=== PATIENT | female | born 1970 | race Caucasian/White ===

== ENCOUNTER → 2024-09-12 | Outpatient (CLI) | payer BC, SELFPAY ==
[2024-09-12 11:51] LABS: Misc Send Out* See Sep Rpt
[2024-09-12 12:25] LABS: Basophils % (Auto) 1 % (0-2.5); Eosinophils # (Auto) 0.3 Thou/mm3 (0.0-0.5); Eosinophils % (Auto) 4 % (0-10); Hematocrit 41.6 % (36.0-46.0); Immature Granulocytes % (Auto) 0 % (0-0); Immature Granulocytes Auto 0.02 Thou/mm3 (0.00-0.00); Lymphocytes % (Auto) 33 % (10-50); Mean Corpuscular HGB Conc 33.7 g/dl (31.0-37.0); Mean Corpuscular Hemoglobin 28.8 pg (25.0-35.0); Mean Corpuscular Volume 86 fL (80-100); Monocytes # (Auto) 0.5 Thou/mm3 (0.0-0.8); Monocytes % (Auto) 8 % (0-12); Neutrophils # (Auto) 3.4 Thou/mm3 (1.8-7.7); Neutrophils % (Auto) 55 % (37-80); Nucleated Red Blood Cell % 0 /100 WBC (0); Platelet Count 208 Thou/mm3 (140-440); RDW Standard Deviation 39.7 fL (36.4-46.3); Red Blood Count 4.86 Miln/mm3 (4.00-5.20); White Blood Count 6.3 Thou/mm3 (3.6-11.0)
[2024-09-12 12:39] LABS: Sed Rate (ESR) 17 mm/hr (0-30)
[2024-09-12 12:51] LABS: Folate 11.05 ng/mL (>5.38); Vitamin B12 470 pg/mL (211-911)
[2024-09-12 12:52] LABS: Alanine Aminotransferase 32 U/L (10-49); Albumin, Serum 4.4 gm/dL (3.5-5.0); Albumin/Globulin Ratio 1.5 (1.2-2.2); Alkaline Phosphatase 101 U/L (46-116); Anion Gap 3 (7-16); Aspartate Amino Transferase 30 U/L (0-34); BUN/Creatinine Ratio 11 Ratio (12-20); Bilirubin,Total 0.4 mg/dL (0.3-1.2); Blood Urea Nitrogen 10 mg/dL (9-23); C-Reactive Protein 0.9 mg/dL (0.0-0.9); Calcium 9.5 mg/dL (8.3-10.6); Calcium (Corrected) 9.5 mg/dL (8.5-10.1); Carbon Dioxide 29.7 mMol/L (20.0-31.0); Chloride 106 mMol/L (98-107); Creatinine (Component) 0.9 mg/dL (0.6-1.3); Globulin 2.9 gm/dL (2.3-3.5); Glucose 96 mg/dL (74-106); Osmolality,Calculated 276 (275-295); Potassium 4.2 mMol/L (3.4-5.1); Sodium 139 mMol/L (136-145); Total Protein 7.3 gm/dL (5.7-8.2); eGFR > 60 See Note
[2024-09-18 06:16] LABS: HLA-B27 Antigen* NEGATIVE (NEGATIVE)
== END | disposition home or self-care (01) ==
LOC: COPL 11:30
PROVIDERS: PCP Internal Medicine; Referring Provider Internal Medicine; Visit Provider Internal Medicine
DX: F32.A Depression, unspecified (principal); H53.8 Other visual disturbances; M25.50 Pain in unspecified joint; M25.512 Pain in left shoulder; M50.30 Other cervical disc degeneration, unspecified cervical region; M51.369 Other intervertebral disc degeneration, lumbar region without mention of lumbar back pain or lower extremity pain; M79.10 Myalgia, unspecified site; R06.83 Snoring; R21 Rash and other nonspecific skin eruption; R73.03 Prediabetes
CPT/HCPCS: 36415; 80053; 82306; 82607; 82746; 82785; 85025; 85652; 86140; 86812

== ENCOUNTER → 2024-11-05 | Outpatient (CLI) | payer BC, SELFPAY ==
--- NOTE | 2024-11-05 | XR_ITS ---
Examination: Bilateral hips, AP pelvis, 5 views Technique: AP, lateral views both hips, AP pelvis, 5 views Exam date and time: November 05, 2024 0818 hours INDICATIONS: Bilateral hip pain years FINDINGS: Moderate bilateral hip osteoarthritis slightly more severe left hip No hip fracture or pelvic fracture No hip dislocation IMPRESSION: Moderate bilateral hip osteoarthritis
[2024-11-05 10:07] LABS: Amphetamine/Methamp Scrn,U Negative (Negative); Barbiturate Screen,Urine Negative (Negative); Benzodiazepines Screen,Urine Positive (Negative); Benzoylecgonine Screen, Ur Negative (Negative); Fentanyl Screen,Urine Negative (Negative); Opiate Screen,Urine Negative (Negative); THC Screen,Urine Negative (Negative)
== END | disposition home or self-care (01) ==
LOC: CDIM 07:49 → COPL 08:27 → CDIM 08:33 → SLDO 08:34
PROVIDERS: PCP Family Medicine; Referring Provider Nurse Practitioner Family; Visit Provider Radiology Diagnostic Radiology
DX: M16.0 Bilateral primary osteoarthritis of hip (principal); F41.9 Anxiety disorder, unspecified; M35.9 Systemic involvement of connective tissue, unspecified; Z79.899 Other long term (current) drug therapy
CPT/HCPCS: 73523; 80307

== ENCOUNTER → 2024-11-26 | Outpatient (CLI) | payer BC, SELFPAY ==
--- NOTE | 2024-11-26 16:41 | XR_ITS ---
Examination: PA lateral chest 2 views TECHNIQUE: Upright PA lateral chest 2 views Exam date and time: November 18, 2024 1739 hours INDICATIONS: Shortness of breath beginning 3 days ago. FINDINGS: Normal heart size Moderate hyperexpansion Basilar bronchitis pattern IMPRESSION: COPD Basilar bronchitis pattern
== END | disposition home or self-care (01) ==
PROVIDERS: PCP Family Medicine; Referring Provider Nurse Practitioner Family; Visit Provider Nurse Practitioner Family
DX: J44.9 Chronic obstructive pulmonary disease, unspecified (principal)
CPT/HCPCS: 71046

== ENCOUNTER → 2024-11-28 | Outpatient (CLI) | payer BC, SELFPAY ==
[2024-11-28 07:20] LABS: Coccid Serology, CF (UCD)* See Sep Rpt; Misc Send Out* See Sep Rpt; Quantiferon-TB* See Sep Rpt
[2024-11-28 08:36] LABS: Basophils % (Auto) 0 % (0-2.5); Eosinophils # (Auto) 0.5 Thou/mm3 (0.0-0.5); Eosinophils % (Auto) 6 % (0-10); Hematocrit 39.7 % (36.0-46.0); Hemoglobin 13.2 g/dL (12.0-16.0); Immature Granulocytes % (Auto) 0 % (0-0); Immature Granulocytes Auto 0.04 Thou/mm3 (0.00-0.00); Lymphocytes # (Auto) 1.9 Thou/mm3 (1.0-4.8); Lymphocytes % (Auto) 22 % (10-50); Mean Corpuscular HGB Conc 33.2 g/dl (31.0-37.0); Mean Corpuscular Hemoglobin 29.1 pg (25.0-35.0); Mean Corpuscular Volume 88 fL (80-100); Monocytes # (Auto) 0.5 Thou/mm3 (0.0-0.8); Monocytes % (Auto) 6 % (0-12); Neutrophils # (Auto) 5.9 Thou/mm3 (1.8-7.7); Neutrophils % (Auto) 66 % (37-80); Nucleated Red Blood Cell % 0 /100 WBC (0); Platelet Count 223 Thou/mm3 (140-440); RDW Standard Deviation 41.5 fL (36.4-46.3); Red Blood Count 4.53 Miln/mm3 (4.00-5.20); White Blood Count 8.9 Thou/mm3 (3.6-11.0)
[2024-11-28 08:51] LABS: Glucose Estimated Average 126 mg/dL (80-131)
[2024-11-28 09:19] LABS: Alanine Aminotransferase 62 U/L (10-49); Albumin, Serum 4.1 gm/dL (3.5-5.0); Albumin/Globulin Ratio 1.4 (1.2-2.2); Alkaline Phosphatase 106 U/L (46-116); Anion Gap 9 (7-16); Aspartate Amino Transferase 32 U/L (0-34); BUN/Creatinine Ratio 13 Ratio (12-20); Bilirubin,Total 0.4 mg/dL (0.3-1.2); Blood Urea Nitrogen 12 mg/dL (9-23); Calcium 8.9 mg/dL (8.3-10.6); Calcium (Corrected) 8.9 mg/dL (8.5-10.1); Chloride 102 mMol/L (98-107); Creatinine (Component) 0.9 mg/dL (0.6-1.3); Globulin 2.9 gm/dL (2.3-3.5); Glucose 117 mg/dL (74-106); Osmolality,Calculated 276 (275-295); Potassium 3.8 mMol/L (3.4-5.1); Sodium 138 mMol/L (136-145); eGFR > 60 See Note
[2024-12-04 06:58] LABS: C-Peptide* 4.38 ng/mL (0.80-3.85); Insulin* 19.5 uIU/mL (< OR = 18.4)
== END | disposition home or self-care (01) ==
PROVIDERS: PCP Internal Medicine; Referring Provider Nurse Practitioner Family; Visit Provider Nurse Practitioner Family
DX: E11.9 Type 2 diabetes mellitus without complications (principal); J20.9 Acute bronchitis, unspecified; N39.0 Urinary tract infection, site not specified
CPT/HCPCS: 36415; 80053; 83036; 83525; 84681; 85025; 86171; 86480; 86738; 87086

== ENCOUNTER 2025-01-09 09:40 | Outpatient (AMB) | payer BC, SELFPAY ==
[2025-01-09 10:23] VITALS: BP 119/80; PULSE 88; RESP 19; TEMP 36.6; O2SAT 96; BMI 39.9
--- NOTE | 2025-01-09 10:23 | ORTHONT_ITS ---
Vital signs 01/09/25 10:23 Height 1.75 m Height Method Stated Weight 122.64 kg Weight Measurement Method Standing Scale BMI 39.9 BP 119/80 Blood Pressure Source Automatic Cuff Blood Pressure Location Left Upper Arm Position Sitting Respiration 19 Pulse 88 Pulse Source Monitor Temp 97.8 F Temp Source Temporal Artery Scan Pulse Oximetry (%) 96 Oxygen Delivery Method Room Air Med/Allergies Allergies & Medications Allergies azithromycin Allergy (Intermediate, Verified 01/09/25 10:24) Rash codeine Allergy (Intermediate, Verified 01/09/25 10:24) Itching phenazopyridine Allergy (Unknown, Verified 01/09/25 10:24) Adhesives Allergy (Unknown, Uncoded 01/09/25 10:24) RASH ITCHING Medication Reconciliation alprazolam 0.5 mg tablet 0.5 mg PO HS 09/13/24 [History Confirmed 01/09/25] Held on 09/13/24. Instructions: Resume on 09/14/24. cyclobenzaprine 10 mg tablet 10 mg PO QDAY 09/13/24 [History Confirmed 01/09/25] pregabalin 75 mg capsule 75 mg PO BID 09/13/24 [History Confirmed 01/09/25] sertraline 100 mg tablet 100 mg PO QDAY 09/13/24 [History Confirmed 01/09/25] Exam Exam Patient is in no acute distress and is cooperative with the examination today. Breathing is nonlabored. In no respiratory distress. Patient has no paraspinal tenderness. Spinal deformity cannot be appreciated. The gait of the patient is nonantalgic Bilateral extremities were evaluated and demonstrates sensation intact to light touch. Palpable pedal pulses are present. No significant edema is present. Bilateral knees were examined and the patient has full strength and range of motion.. The right hip was examined. Patient was able to flex to 90 degrees, adduct to 30 degrees, abduct to 40 degrees, internally rotate to 20 degrees, and externally rotate to 20 degrees. Patient has a negative logroll. Stinchfield is negative. The patient is nontender diffusely to touch. The left hip was examined. Patient was able to flex to 90 degrees, adduct to 30 degrees, abduct to 40 degrees, internally rotate to 20 degrees, and externally rotate to 20 degrees. Patient has a negative logroll. The stinchfield is negative. The patient is tender to palpation laterally over the troch bursa Assessment and Plan Problem List (1) Trochanteric bursitis: Status: Acute Plan: Patient is a 54-year-old female with trochanteric bursitis of the left hip as well as possible back pain. I would like to get spine x-rays. I am not sure how much of the Pain is actually from the hip. Her x-rays demonstrate mild arthritis. Office Procedures GNS Level of Care Nursing/Assessment Patient Status: Initial/New Patient Nursing Assessment/Reassesment: Medication Reconciliation, Update PMH in EMR and Vital Signs Coordination of Care: Complex Care and Chronic Disease 1-5, Education Complex Pt/Fam, Consent,records obtained, informed consent, 1 Ins Authorization, Lab and Imaging orders, Results/Orders obtained and Staff clarify orders New Patient Charge New Patient Point Assignment: [id number] New Patient Point Charge: SERVICE SUPPORT REPRESENTATIVE Level 4 ([id number]) MA Intake Visit Data Collection New Patient or Established: New Patient (never been to [facility]) Reason for Visit:: BILATERAL HIP OSTEOARTHRITIS Seen by Clinical Staff ONLY (RN/MA): No Certified Physical Therapist Assistant Required: No PCP or OBGYN visit in last 3 months: Yes Hx Now: No Do You Feel Safe at Home: Yes Authorities Contacted: N/A Questionairres Past Medical History Past Medical History Have you ever been diagnosed with any of the following: Neurological Problems Seizures: No Migraine: No Cardiology Problems Cardiac Arrhythmia: Yes (PALPITATIONS) Congestive Heart Failure: No Edema: No Cellulitis: No Varicose Veins: No Respiratory Problems Chronic Obstructive Pulmonary Disease (COPD): Yes Asthma: No Pneumonia: Yes Tuberculosis: No Sleep Apnea: Yes (BEING TESTED) Smoking: No Smoking Exposure: No Stomache/Intestinal Problems Hepatitis: No Ulcer: Yes Hiatal Hernia: Yes Gastroesophageal Reflux Disease: Yes Genital/Urinary Problems Renal Disease: No Reproductive Problems Pelvic Inflammatory Disease: No Previous Pregnancies: Yes Musculoskeletal Problems Arthritis: Yes Scoliosis: Yes Degenerative Joint Disease: Yes Head,Eye,Nose,Throat Problems Cataracts: Yes (MILD) Endocrine Problems Diabetes Mellitus Type 1: No Diabetes Mellitus Type 2: No Hypoglycemia: No Blood Problems Anemia: Yes Sickle Cell Disease: No Psychologic Problems Depression: Yes Anxiety: Yes Depression: No Post Traumatic Stress Disorder: No Other Problems Hospitalization: No Shingles: No Falls: No Blood Transfusions: No Blood Transfusion Reaction: No Anesthesia Reactions: No Chemotherapy: No Radiation Therapy: No MRSA: No Chicken Pox: No (UNKNOWN) Measles: No Mumps: No Cancer: No Surgical History Hysterectomy: Yes (PARTIAL) Pacemaker: No Subjective Visit Visit for: new patient and hip (BILATERAL) Immunization / Flu Flu Vaccine in the Last 12 Months: No Flu Vaccine Exclusion Criteria: Refused by Patient History of Present Illness Chief complaint: Bilateral hip pain Brian is a 54-year-old female with bilateral buttocks and pain on the side. She is currently seeing a electrical engineering designer and is getting worked up. She was told she has fibromyalgia versus some rheumatological issue. She cannot take anti- inflammatories because of peptic ulcer disease. There is pain on her side of her hip as well. Pain Pain level (0-10): 8 Pain duration: WITH MOVEMENT Pain location: outside (lateral) and posterior Pain quality: sharp, dull and aching Pain timing: increases with activity and stairs Ambulatory data Ambulatory device: none Treatments Improvement with previous injections: No Number of Physical Therapy sessions: 12 Improvement with PT: No Improvement with NSAIDS: no Review of Systems Review of Systems: All systems negative unless otherwise noted in HPI.
== END 2025-01-09 10:52 | disposition home or self-care (01) ==
LOC: HODSRG 09:40
PROVIDERS: PCP Family Medicine; Referring Provider Family Medicine; Supervising Provider Orthopaedic Surgery Adult Reconstructive Orthopaedic Surgery; Visit Provider Orthopaedic Surgery Adult Reconstructive Orthopaedic Surgery
DX: M70.62 Trochanteric bursitis, left hip (principal); G47.30 Sleep apnea, unspecified; J44.9 Chronic obstructive pulmonary disease, unspecified
CPT/HCPCS: 99204; G0463

== ENCOUNTER → 2025-01-20 | Outpatient (CLI) | payer BC, SELFPAY ==
--- NOTE | 2025-01-20 | XR_ITS ---
Examination: Lumbar spine 3 views Technique one AP lateral coned lateral lower lumbar spine 3 views Exam date and time: January 20, 2025 0815 hours INDICATIONS: Low back pain radiating to both legs one year FINDINGS: Adequate alignment lumbar vertebral bodies No lumbar fracture. Advanced degenerative disc disease L4-L5, L5-S1 IMPRESSION: Advanced degenerative disc disease L4-L5, L5-S1
== END | disposition home or self-care (01) ==
PROVIDERS: PCP Nurse Practitioner Family; Referring Provider Orthopaedic Surgery Adult Reconstructive Orthopaedic Surgery; Visit Provider Orthopaedic Surgery Adult Reconstructive Orthopaedic Surgery
DX: M51.369 Other intervertebral disc degeneration, lumbar region without mention of lumbar back pain or lower extremity pain (principal); M51.379 Other intervertebral disc degeneration, lumbosacral region without mention of lumbar back pain or lower extremity pain
CPT/HCPCS: 72100

== ENCOUNTER 2025-01-31 10:35 | Outpatient (AMB) | payer BC, SELFPAY ==
[2025-01-31 11:16] VITALS: BP 119/84; PULSE 92; RESP 17; TEMP 36.5; O2SAT 94; BMI 40.1
--- NOTE | 2025-01-31 11:16 | ORTHONT_ITS ---
Vital signs 01/31/25 11:16 Height 1.75 m Height Method Stated Weight 123.15 kg Weight Measurement Method Standing Scale BMI 40.1 BP 119/84 Blood Pressure Source Automatic Cuff Blood Pressure Location Left Upper Arm Position Sitting Respiration 17 Pulse 92 Pulse Source Monitor Temp 97.7 F Temp Source Temporal Artery Scan Pulse Oximetry (%) 94 L Oxygen Delivery Method Room Air Med/Allergies Allergies & Medications Allergies azithromycin Allergy (Intermediate, Verified 01/31/25 11:18) Rash codeine Allergy (Intermediate, Verified 01/31/25 11:18) Itching phenazopyridine Allergy (Unknown, Verified 01/31/25 11:18) Adhesives Allergy (Unknown, Uncoded 01/31/25 11:18) RASH ITCHING Medication Reconciliation alprazolam 0.5 mg tablet 0.5 mg PO HS 09/13/24 [History Confirmed 01/31/25] Held on 09/13/24. Instructions: Resume on 09/14/24. cyclobenzaprine 10 mg tablet 10 mg PO QDAY 09/13/24 [History Confirmed 01/31/25] pregabalin 75 mg capsule 75 mg PO BID 09/13/24 [History Confirmed 01/31/25] sertraline 100 mg tablet 100 mg PO QDAY 09/13/24 [History Confirmed 01/31/25] Exam Exam Patient is in no acute distress and is cooperative with the examination today. Breathing is nonlabored. In no respiratory distress. Patient has no paraspinal tenderness. Spinal deformity cannot be appreciated. The gait of the patient is nonantalgic Bilateral extremities were evaluated and demonstrates sensation intact to light touch. Palpable pedal pulses are present. No significant edema is present. Bilateral knees were examined and the patient has full strength and range of motion.. The right hip was examined. Patient was able to flex to 90 degrees, adduct to 30 degrees, abduct to 40 degrees, internally rotate to 20 degrees, and externally rotate to 20 degrees. Patient has a negative logroll. Stinchfield is negative. The patient is nontender diffusely to touch. The left hip was examined. Patient was able to flex to 90 degrees, adduct to 30 degrees, abduct to 40 degrees, internally rotate to 20 degrees, and externally rotate to 20 degrees. Patient has a negative logroll. The stinchfield is negative. The patient is tender to palpation laterally over the troch bursa We looked at bilateral hip x-rays. There is mild arthritis of the hips. She has significant degeneration at multiple levels in her spine. Assessment and Plan Problem List (1) Trochanteric bursitis: Status: Acute Plan: Patient is a 54-year-old female with trochanteric bursitis of the left hip as well as possible back pain. Her x-rays of her spine are very abnormal and she has numbness and tingling that go down to her feet. I recommend that she see a spine physician for this. For her trochanteric bursitis on the left hip, We discussed that we can try nonoperative treatment. She unfortunately cannot take anti-inflammatories and does not want injections this will raise her blood sugar. We will thus treat her conservatively for this at this time Office Procedures GNS Level of Care Nursing/Assessment Patient Status: Established Patient Nursing Assessment/Reassesment: Medication Reconciliation, Update PMH in EMR and Vital Signs Coordination of Care: Complex Care and Chronic Disease 1-5, Consent,records obtained, informed consent, Results/Orders obtained and Staff clarify orders Established Patient Charge Established Patient Point Assignment: 75 Established Patient Point Charge: EP Level 2 (40-75) MA Intake Visit Data Collection New Patient or Established: Established Patient (seen at [facility] within 3 years) Reason for Visit:: x ray result/spine/hip Seen by Clinical Staff ONLY (RN/MA): No Blast Furnace Tender Required: No PCP or OBGYN visit in last 3 months: Yes Hx Now: No Do You Feel Safe at Home: Yes Authorities Contacted: N/A Questionairres Past Medical History Past Medical History Have you ever been diagnosed with any of the following: Neurological Problems Seizures: No Migraine: No Cardiology Problems Cardiac Arrhythmia: Yes (PALPITATIONS) Congestive Heart Failure: No Edema: No Cellulitis: No Varicose Veins: No Respiratory Problems Chronic Obstructive Pulmonary Disease (COPD): Yes Asthma: No Pneumonia: Yes Tuberculosis: No Sleep Apnea: Yes (BEING TESTED) Smoking: No Smoking Cessation Counseling: No Smoking Exposure: No Stomache/Intestinal Problems Hepatitis: No Ulcer: Yes Hiatal Hernia: Yes Gastroesophageal Reflux Disease: Yes Genital/Urinary Problems Renal Disease: No Reproductive Problems Pelvic Inflammatory Disease: No Previous Pregnancies: Yes Musculoskeletal Problems Arthritis: Yes Scoliosis: Yes Degenerative Joint Disease: Yes Head,Eye,Nose,Throat Problems Cataracts: Yes (MILD) Endocrine Problems Diabetes Mellitus Type 1: No Diabetes Mellitus Type 2: No Hypoglycemia: No Blood Problems Anemia: Yes Sickle Cell Disease: No Psychologic Problems Depression: Yes Anxiety: Yes Depression: No Post Traumatic Stress Disorder: No Other Problems Hospitalization: No Shingles: No Falls: No Blood Transfusions: No Blood Transfusion Reaction: No Anesthesia Reactions: No Chemotherapy: No Radiation Therapy: No MRSA: No Chicken Pox: No (UNKNOWN) Measles: No Mumps: No Cancer: No Surgical History Hysterectomy: Yes (PARTIAL) Pacemaker: No Subjective Visit Visit for: follow up visit, hip and other (specify) (spine) Immunization / Flu Flu Vaccine in the Last 12 Months: Yes Flu Vaccine Exclusion Criteria: Already Received History of Present Illness Chief complaint: Bilateral hip pain Brian is a 54-year-old female with bilateral buttocks and pain on the side. She is currently seeing a retail account manager and is getting worked up. She was told she has fibromyalgia versus some rheumatological issue. She cannot take anti- inflammatories because of peptic ulcer disease. There is pain on her side of her hip as well. Personal History Red flag PMH: none Pain Pain level (0-10): 7 Pain duration: +3 years Pain location: outside (lateral) and posterior Pain quality: aching and shocking Pain timing: increases with activity Associated signs & symptoms: numbness and stiffness Ambulatory data Ambulatory device: none Walking distance (minutes): 15 Treatments Number of previous injections: 0 Improvement with previous injections: No Number of Physical Therapy sessions: 6 Improvement with PT: No Improvement with NSAIDS: n/a Review of Systems Review of Systems: All systems negative unless otherwise noted in HPI.
== END 2025-01-31 11:38 | disposition home or self-care (01) ==
LOC: HODSRG 10:35
PROVIDERS: PCP Family Medicine; Referring Provider Family Medicine; Supervising Provider Orthopaedic Surgery Adult Reconstructive Orthopaedic Surgery; Visit Provider Orthopaedic Surgery Adult Reconstructive Orthopaedic Surgery
DX: M70.62 Trochanteric bursitis, left hip (principal); R20.0 Anesthesia of skin; R20.2 Paresthesia of skin; J44.9 Chronic obstructive pulmonary disease, unspecified
CPT/HCPCS: 99212; G0463

== ENCOUNTER → 2025-02-05 | Outpatient (CLI) | payer BC, SELFPAY ==
[2025-02-17 08:12] LABS: ANA Pattern NUCLEAR, SPECKLED; ANA Screen, IFA POSITIVE (NEGATIVE); ANA Titer 1:40 titer; Complement Component C3* 187 mg/dL (83-193); DNA (ds) Antibody* 2 IU/mL
== END | disposition home or self-care (01) ==
LOC: COPL 14:23
PROVIDERS: PCP Internal Medicine; Referring Provider Nurse Practitioner Family; Visit Provider Nurse Practitioner Family
DX: M35.9 Systemic involvement of connective tissue, unspecified (principal)
CPT/HCPCS: 36415; 86038; 86160; 86225

== ENCOUNTER → 2025-02-20 | Outpatient (CLI) | payer BC, SELFPAY ==
--- NOTE | 2025-02-20 12:50 | XR_ITS ---
Examination: Hand, left 3 views Technique: Hand AP, oblique, lateral 3 views Date and time of exam: February 20, 2025 1350 hours INDICATIONS: Finger numbness one week FINDINGS: Mild juxta-articular bone demineralization No fracture or dislocation Minimal osteoarthritis interphalangeal joints moderate osteoarthritis first carpometacarpal joint No erosive arthritis IMPRESSION: Osteoarthritis as above
--- NOTE | 2025-02-20 12:50 | XR_ITS ---
Examination: Forearm, left, 2 views. Technique: Forearm, AP, lateral 2 views Date and time of exam: February 21, 2024 1350 hours INDICATIONS: Forearm numbness and pain one week FINDINGS: Adequate bone density. No fracture Mild narrowing radiocarpal joint No foreign body IMPRESSION: No fracture Moderate narrowing radiocarpal joint
--- NOTE | 2025-02-20 13:20 | XR_ITS ---
Examination: Bone densitometry Date and time of exam:February 20, 2025 1304 hours INDICATIONS: Hysterectomy age 36, family history, mother osteoporosis Technique: Lumbar spine and hip total bone mineralization values of an calculated. Peak reference and age match control results have been displayed. Findings: Lumbar spine total bone mineralization is1.128 gm/cm2. This is 0.7 standard deviations above peak reference. This is 0.8 standard deviations above age-matched controls. Hip total bone mineralization is 1.021 gm/cm2 This is 0.6 standard deviations above peak reference. This is 1.3 standard deviations above age-matched controls Impression: There is normal mineralization based on lumbar spine measurements. There is normal mineralization based on hip measurements
[2025-02-20 15:36] LABS: Alanine Aminotransferase 85 U/L (10-49); Albumin, Serum 4.3 gm/dL (3.5-5.0); Albumin/Globulin Ratio 1.4 (1.2-2.2); Alkaline Phosphatase 134 U/L (46-116); Amylase 66 U/L (30-118); Anion Gap 7 (7-16); Aspartate Amino Transferase 63 U/L (0-34); BUN/Creatinine Ratio 10 Ratio (12-20); Bilirubin,Total 0.4 mg/dL (0.3-1.2); Blood Urea Nitrogen 10 mg/dL (9-23); Carbon Dioxide 29.5 mMol/L (20.0-31.0); Chloride 108 mMol/L (98-107); Globulin 3.1 gm/dL (2.3-3.5); Glucose 114 mg/dL (74-106); Lipase 47 U/L (12-53); Osmolality,Calculated 286 (275-295); Potassium 4.1 mMol/L (3.4-5.1); Sodium 144 mMol/L (136-145); Total Protein 7.4 gm/dL (5.7-8.2); eGFR > 60 See Note
[2025-02-20 15:41] LABS: B-Type Natriuretic Peptide 34 pg/mL (0-100)
[2025-02-20 15:46] LABS: D-Dimer < 250 ng/mL (<600)
== END | disposition home or self-care (01) ==
PROVIDERS: PCP Family Medicine; Referring Provider Nurse Practitioner Family; Visit Provider Nurse Practitioner Family
DX: M81.0 Age-related osteoporosis without current pathological fracture (principal); M25.80 Other specified joint disorders, unspecified joint; M18.12 Unilateral primary osteoarthritis of first carpometacarpal joint, left hand; M19.042 Primary osteoarthritis, left hand; R22.43 Localized swelling, mass and lump, lower limb, bilateral; R10.12 Left upper quadrant pain
CPT/HCPCS: 36415; 73090; 73130; 77080; 80053; 82150; 83690; 83880; 85379; 86235

== ENCOUNTER → 2025-03-27 | Outpatient (CLI) | payer BC, SELFPAY ==
--- NOTE | 2025-03-27 08:47 | XR_ITS ---
Examination: Abdomen sonogram, complete Date and time of exam: March 27, 2025 0912 hours INDICATIONS: Left upper abdominal pain beginning 2 years ago. Technique: Multiple real-time grayscale transabdominal sonographic images of the abdomen have been obtained. Findings: Absent gallbladder Common bile duct 0.7 cm no stones Pancreatic head 2.4 cm Aorta not enlarged. Hepatomegaly 20.7 cm fatty infiltration Normal hepatopedal portal venous flow Patent IVC Right kidney 11.3 cm cortex 1.1 cm Left kidney 11.5 cm renal cortex 1.3 cm Mild renal parenchymal scar formation Splenomegaly 15 cm IMPRESSION: No common bile duct stones Moderate hepatomegaly fatty infiltration Significant splenomegaly
== END | disposition home or self-care (01) ==
PROVIDERS: PCP Nurse Practitioner Family; Referring Provider Nurse Practitioner Family; Visit Provider Nurse Practitioner Family
DX: R16.1 Splenomegaly, not elsewhere classified (principal); K76.0 Fatty (change of) liver, not elsewhere classified
CPT/HCPCS: 76700

== ENCOUNTER → 2025-04-21 | Outpatient (CLI) | payer BC, SELFPAY ==
[2025-04-21 11:07] LABS: Vitamin B12 388 pg/mL (211-911)
[2025-04-21 11:10] LABS: Alanine Aminotransferase 86 U/L (10-49); Albumin, Serum 4.1 gm/dL (3.5-5.0); Albumin/Globulin Ratio 1.5 (1.2-2.2); Alkaline Phosphatase 121 U/L (46-116); Anion Gap 7 (7-16); Aspartate Amino Transferase 81 U/L (0-34); BUN/Creatinine Ratio 11 Ratio (12-20); Bilirubin,Total 0.4 mg/dL (0.3-1.2); Blood Urea Nitrogen 10 mg/dL (9-23); Carbon Dioxide 29.7 mMol/L (20.0-31.0); Chloride 105 mMol/L (98-107); Creatine Kinase 49 U/L (34-171); Creatinine (Component) 0.9 mg/dL (0.6-1.3); Globulin 2.8 gm/dL (2.3-3.5); Glucose 158 mg/dL (74-106); Osmolality,Calculated 285 (275-295); Potassium 4.4 mMol/L (3.4-5.1); Sodium 142 mMol/L (136-145); Total Protein 6.9 gm/dL (5.7-8.2); eGFR > 60 See Note
[2025-04-21 11:12] LABS: Glucose Estimated Average 128 mg/dL (80-131); Hemoglobin A1C 6.1 % Hgb (4.8-6.0)
[2025-04-25 06:44] LABS: ANA Screen, IFA NEGATIVE (NEGATIVE)
== END | disposition home or self-care (01) ==
LOC: COPL 09:44
PROVIDERS: PCP Nurse Practitioner Family; Referring Provider Psychiatry & Neurology Neurology; Visit Provider Psychiatry & Neurology Neurology
DX: R20.2 Paresthesia of skin (principal); M79.7 Fibromyalgia
CPT/HCPCS: 36415; 80053; 82306; 82550; 82607; 83036; 84443; 86038

== ENCOUNTER → 2025-06-10 | Outpatient (CLI) | payer BC, SELFPAY ==
--- NOTE | 2025-06-10 08:15 | XR_ITS ---
Examination: MRI lumbar spine without contrast Date and time of exam: June 10, 2025 0902 hours Comparison November 16, 2017 INDICATIONS: Low back pain 10 years worse the last year radiating to the legs Technique: Multiple MRI axial and sagittal sections lumbar spine. Sagittal T2-weighted images, TR 3500, TE 118 T1 weighted transverse sections, TR 688 T8.5, T2-weighted sagittal sections T1 weighted sagittal sections TR 621, TE 30 T2 axial sections, TR 4, 190, TE 84. Findings: Adequate alignment lumbar vertebral bodies Advanced disc narrowing L4-L5,. No lumbar fracture Diffuse lumbar disc desiccation L5-S1 6 mm left paracentral subarticular foraminal disc bulge producing mild left L5 ganglionic compression L4-L5 4 mm foraminal disc bulge but no ganglionic compression L3-L4 no disc protrusion L2-L3 no disc protrusion L1-L2 no disc protrusion IMPRESSION: L5-S1 6 mm left paracentral subarticular foraminal disc bulge producing mild left L5 ganglionic compression
== END | disposition home or self-care (01) ==
LOC: SMRI 07:54
PROVIDERS: PCP Nurse Practitioner Family; Referring Provider Nurse Practitioner Family; Visit Provider Nurse Practitioner Family
DX: M51.370 Other intervertebral disc degeneration, lumbosacral region with discogenic back pain only (principal); G95.20 Unspecified cord compression
CPT/HCPCS: 72148

== ENCOUNTER → 2025-07-14 | Outpatient (CLI) | payer BC, SELFPAY ==
--- NOTE | 2025-07-14 12:15 | XR_ITS ---
Examination: Shoulder,right, 3 views Technique: Shoulder AP internal rotation, AP external rotation, Y view shoulder, 3 views Exam date and time :July 14, 2025 12:22 PM INDICATIONS: Right shoulder pain beginning 3 weeks ago. FINDINGS: Moderate narrowing glenohumeral joint Moderate osteopenia. No shoulder fracture or dislocation IMPRESSION: Moderate narrowing glenohumeral joint
--- NOTE | 2025-07-14 12:15 | XR_ITS ---
Examination: AP lateral soft tissue neck 2 views Technique one AP lateral soft tissue neck 2 views Date and time: July 12, 2025, 12:26 PM, comparison March 08, 2024 INDICATIONS: Neck pain several years no trauma. FINDINGS: Normal epiglottis. No opaque foreign body. Moderate to advanced degenerative disc disease C5-C6, C6-C7 with both anterior posterior osteophyte formation IMPRESSION: Moderate to advanced degenerative disc disease C5-C6, C6-C7
== END | disposition home or self-care (01) ==
LOC: CDIM 12:05
PROVIDERS: PCP Internal Medicine; Referring Provider Nurse Practitioner Family; Visit Provider Nurse Practitioner Family
DX: M25.811 Other specified joint disorders, right shoulder (principal); M50.322 Other cervical disc degeneration at C5-C6 level
CPT/HCPCS: 70360; 73030

== ENCOUNTER → 2025-10-06 | Outpatient (CLI) | payer BC, SELFPAY ==
[2025-10-06 08:52] LABS: Misc Send Out* See Sep Rpt
[2025-10-06 08:57] LABS: Misc Send Out* See Sep Rpt
[2025-10-06 09:16] LABS: Basophils # (Auto) 0.0 Thou/mm3 (0.0-0.2); Basophils % (Auto) 1 % (0-2.5); Eosinophils # (Auto) 0.3 Thou/mm3 (0.0-0.5); Eosinophils % (Auto) 4 % (0-10); Hematocrit 43.0 % (36.0-46.0); Hemoglobin 14.2 g/dL (12.0-16.0); Immature Granulocytes Auto 0.02 Thou/mm3 (0.00-0.00); Lymphocytes # (Auto) 2.0 Thou/mm3 (1.0-4.8); Lymphocytes % (Auto) 28 % (10-50); Mean Corpuscular HGB Conc 33.0 g/dl (31.0-37.0); Mean Corpuscular Hemoglobin 29.2 pg (25.0-35.0); Mean Corpuscular Volume 88 fL (80-100); Monocytes # (Auto) 0.6 Thou/mm3 (0.0-0.8); Monocytes % (Auto) 8 % (0-12); Neutrophils # (Auto) 4.3 Thou/mm3 (1.8-7.7); Neutrophils % (Auto) 59 % (37-80); Nucleated Red Blood Cell # 0.00 Thou/mm3 (0.00-0.00); Nucleated Red Blood Cell % 0 /100 WBC (0); Platelet Count 203 Thou/mm3 (140-440); RDW Standard Deviation 42.0 fL (36.4-46.3); Red Blood Count 4.87 Miln/mm3 (4.00-5.20); White Blood Count 7.3 Thou/mm3 (3.6-11.0)
[2025-10-06 09:28] LABS: Glucose Estimated Average 103 mg/dL (80-131); Hemoglobin A1C 5.2 % Hgb (4.8-6.0)
[2025-10-06 09:33] LABS: Alanine Aminotransferase 50 U/L (10-49); Albumin, Serum 4.2 gm/dL (3.5-5.0); Albumin/Globulin Ratio 1.3 (1.2-2.2); Alkaline Phosphatase 100 U/L (46-116); Anion Gap 8 (7-16); Aspartate Amino Transferase 47 U/L (0-34); BUN/Creatinine Ratio 11 Ratio (12-20); Bilirubin,Total 0.6 mg/dL (0.3-1.2); Blood Urea Nitrogen 10 mg/dL (9-23); C-Reactive Protein 0.8 mg/dL (0.0-0.9); Calcium 9.0 mg/dL (8.3-10.6); Calcium (Corrected) 9.0 mg/dL (8.5-10.1); Carbon Dioxide 27.8 mMol/L (20.0-31.0); Cardiac Risk Estimate 4.1 RATIO (3.7-5.6); Chloride 108 mMol/L (98-107); Cholesterol 150 mg/dL (132-200); Creatinine (Component) 0.9 mg/dL (0.6-1.3); Globulin 3.3 gm/dL (2.3-3.5); Glucose 110 mg/dL (74-106); HDL Cholesterol 37 mg/dL (40-60); LDL Cholesterol,Calculated 84 mg/dL (0-130); Osmolality,Calculated 286 (275-295); Potassium 4.4 mMol/L (3.4-5.1); Sodium 144 mMol/L (136-145); Thyroid Stimulating Hormone 1.00 uIU/mL (0.55-4.78); Total Protein 7.5 gm/dL (5.7-8.2); Triglycerides 147 mg/dL (30-150); eGFR > 60 See Note
[2025-10-06 10:03] LABS: Sed Rate (ESR) 14 mm/hr (0-30)
== END | disposition home or self-care (01) ==
PROVIDERS: PCP Nurse Practitioner Family; Referring Provider Physician Assistant Medical; Visit Provider Nurse Practitioner Family
DX: F32.A Depression, unspecified (principal); H53.8 Other visual disturbances; M25.50 Pain in unspecified joint; M25.512 Pain in left shoulder; M50.30 Other cervical disc degeneration, unspecified cervical region; M51.369 Other intervertebral disc degeneration, lumbar region without mention of lumbar back pain or lower extremity pain; M79.10 Myalgia, unspecified site; R06.83 Snoring; R21 Rash and other nonspecific skin eruption; Z79.891 Long term (current) use of opiate analgesic; E11.9 Type 2 diabetes mellitus without complications
CPT/HCPCS: 36415; 80053; 80061; 83036; 84443; 85025; 85652; 86140